=== PATIENT | male | born 1965 | race Caucasian/White ===

== ENCOUNTER 2016-12-02 08:39 | Emergency (ER) | payer OTHER ==
[~2016-12-02] VITALS: Ht 180.3 cm; Wt 88.3 kg
[2016-12-02 08:44] VITALS: BP 122/72
[2016-12-02] MEDS ORDERED: KETOROLAC 30 MG/1 ML ONE (09:16)
[2016-12-02] MEDS ORDERED: IBUPROFEN 200 MG TABLET ONE (09:19)
[2016-12-02] MEDS ORDERED: KETOROLAC 30 MG/1 ML IM ONE (10:00)
[2016-12-02] MEDS ORDERED: IBUPROFEN 200 MG TABLET PO ONE (10:00)
== END 2016-12-02 09:51 | disposition home or self-care (01) ==
LOC: ED 09:45
DX: S43.422A Sprain of left rotator cuff capsule, initial encounter (principal); F17.210 Nicotine dependence, cigarettes, uncomplicated; Y04.0XXA Assault by unarmed brawl or fight, initial encounter; Y93.89 Activity, other specified; Y92.89 Other specified places as the place of occurrence of the external cause; Y99.8 Other external cause status
CPT/HCPCS: 99284